=== PATIENT | male | born 1990 | race Caucasian/White ===

== ENCOUNTER 2016-05-07 16:51 | Emergency (ER) | payer MEDICAID ==
[2016-05-07 17:43] LABS: BASOPHILS 0.2 % (0.0-2.0); EOSINOPHILS 2.9 % (0-7); HEMATOCRIT 47.8 % (42.0-54.0); HEMOGLOBIN 16.2 g/dL (13.5-17.5); IMMATURE GRANULOCYTES 0.2 % (0-5); LYMPHOCYTES 30.2 % (15-50); MCH 30.7 pg (26.0-34.0); MCHC 33.9 g/dL (31.0-37.0); MCV 90.7 fL (80.0-100.0); MEAN PLATELET VOLUME 10.4 fL (7.4-10.4); MONOCYTES 6.1 % (2-11); NEUTROPHILS 60.4 % (40-80); PLATELET COUNT 222 10x3/uL (130-400); RBC 5.27 10x6/uL (4.20-6.10); RDW 13.9 % (11.5-14.5); WBC 9.3 10x3/uL (4.8-10.8)
[2016-05-07 17:46] LABS: APPEARANCE CLEAR (CLEAR); BILIRUBIN NEGATIVE (NEGATIVE); COLOR YELLOW (YELLOW); GLUCOSE NEGATIVE (NEGATIVE); KETONE NEGATIVE (NEGATIVE); LEUKOCYTE ESTERASE NEGATIVE (NEGATIVE); NITRITE NEGATIVE (NEGATIVE); PROTEIN NEGATIVE (NEGATIVE); SPECIFIC GRAVITY 1.015 (1.005-1.020); UROBILINOGEN NORMAL (NORMAL)
[2016-05-07 17:48] LABS: BACTERIA FEW /hpf (NONE SEEN); EPITHELIAL CELLS RARE /hpf (0-5); RED CELLS - URINE 0-5 /hpf (0-5); WHITE CELLS - URINE RARE /hpf (0-5)
[2016-05-07 18:00] LABS: ALKALINE PHOSPHATASE 69 U/L (46-116); ALT (SGPT) 86 U/L (10-68); CALC OSMOLALITY 282 mosm/kg (275-300); CALCIUM 9.3 mg/dL (8.5-10.1); CARBON DIOXIDE 29.7 mmol/L (21.0-32.0); CHLORIDE - SERUM 103 mmol/L (98-107); CREATININE - SERUM 0.8 mg/dL (0.6-1.3); GLUCOSE 85 mg/dL (74-106); POTASSIUM - SERUM 3.8 mmol/L (3.5-5.1); PROTEIN - SERUM 7.4 g/dL (6.4-8.2); SODIUM 141 mmol/L (136-145); UREA NITROGEN 20 mg/dL (7-18); eGFR NON AFRICAN AMERICAN > 90 mL/min (90-120)
== END 2016-05-07 19:30 | disposition home or self-care (01) ==
LOC: D.ER 16:51
PROVIDERS: Emergency Medicine
DX: N41.1 Chronic prostatitis (principal); Z87.438 Personal history of other diseases of male genital organs; F41.9 Anxiety disorder, unspecified

== ENCOUNTER 2016-05-16 10:41 | Emergency (ER) | payer MEDICAID ==
[2016-05-16 11:25] LABS: BASOPHILS 0.1 % (0.0-2.0); EOSINOPHILS 3.5 % (0-7); HEMATOCRIT 48.8 % (42.0-54.0); HEMOGLOBIN 16.7 g/dL (13.5-17.5); IMMATURE GRANULOCYTES 0.1 % (0-5); LYMPHOCYTES 33.2 % (15-50); MCH 30.6 pg (26.0-34.0); MCHC 34.2 g/dL (31.0-37.0); MCV 89.5 fL (80.0-100.0); MEAN PLATELET VOLUME 9.9 fL (7.4-10.4); MONOCYTES 8.2 % (2-11); NEUTROPHILS 54.9 % (40-80); PLATELET COUNT 219 10x3/uL (130-400); RBC 5.45 10x6/uL (4.20-6.10); RDW 13.8 % (11.5-14.5); WBC 6.9 10x3/uL (4.8-10.8)
[2016-05-16 11:44] LABS: ALBUMIN 4.5 g/dL (3.4-5.0); ALKALINE PHOSPHATASE 64 U/L (46-116); ALT (SGPT) 95 U/L (10-68); BILIRUBIN - TOTAL 0.42 mg/dL (0.2-1.3); CALC OSMOLALITY 280 mosm/kg (275-300); CALCIUM 9.2 mg/dL (8.5-10.1); CHLORIDE - SERUM 103 mmol/L (98-107); CREATININE - SERUM 0.8 mg/dL (0.6-1.3); GLUCOSE 93 mg/dL (74-106); POTASSIUM - SERUM 3.8 mmol/L (3.5-5.1); SODIUM 139 mmol/L (136-145); UREA NITROGEN 20 mg/dL (7-18); eGFR NON AFRICAN AMERICAN > 90 mL/min (90-120)
== END 2016-05-16 12:48 | disposition home or self-care (01) ==
LOC: D.ER 10:41
PROVIDERS: Emergency Medicine
DX: N50.812 Left testicular pain (principal); F41.9 Anxiety disorder, unspecified; N41.1 Chronic prostatitis; F17.200 Nicotine dependence, unspecified, uncomplicated

== ENCOUNTER 2018-07-23 12:53 | Emergency (ER) | payer SELFPAY ==
[~2018-07-23] VITALS: Ht 177.8 cm; Wt 129.5 kg
[2018-07-23 13:25] VITALS: Ht 177.8 cm; Wt 129.5 kg
[2018-07-23] MEDS ORDERED: ZOLOFT50 MG PO (13:28)
[2018-07-23] MEDS ORDERED: KLONOPIN1 MG PO (13:28)
[2018-07-23] MEDS ORDERED: BUPRENORPHINE HC8 MG SL (13:28)
[2018-07-23] MEDS ORDERED: TRAZODONE HCL150 MG PO (13:29)
[2018-07-23] MEDS ORDERED: TENORMIN25 MG PO (13:29)
[2018-07-23] MEDS ORDERED: ZOFRAN4 MG PO (13:30)
[2018-07-23] MEDS ORDERED: VOLTAREN75 MG PO (17:21)
[2018-07-23] MEDS ORDERED: VIBRAMYCIN 100100 MG PO (17:21)
[2018-07-23 17:30] VITALS: BP 120/72
== END 2018-07-23 17:31 | disposition home or self-care (01) ==
LOC: D.ER 12:53
DX: L03.316 Cellulitis of umbilicus (principal); F17.200 Nicotine dependence, unspecified, uncomplicated